=== PATIENT | female | born 1995 | race Caucasian/White ===

== ENCOUNTER 2019-08-05 04:23 | Inpatient (IN) | payer BC, SELFPAY ==
[2019-08-05] VITALS (58 sets, daily range): BP systolic 0–158; BP diastolic 0–104; PULSE 47–107; RESP 16–18; TEMP 36.5–37.1; O2SAT 100; BMI 29.0
[2019-08-05] MEDS: dextrose 5%-lactated ringers 1,000 ML 125 ML IV (05:08)
[2019-08-05] MEDS: oxytocin 30 UNIT/500 ML BAG IV (05:10)
[2019-08-05 05:18] LABS: Basophils % 0.2 %; Eosinophils # 0.1 10^3/uL (0.0-0.8); Eosinophils % 0.6 %; Hematocrit 34.2 % (37.0-47.0); Hemoglobin 10.6 g/dL (11.5-15.3); Lymphocytes # 2.6 10^3/uL (0.8-4.8); Lymphocytes % 26.8 %; Mean Corpuscular Hemoglobin 25.9 pg (28.0-34.0); Mean Corpuscular Volume 83.4 fL (81-99); Mean Platelet Volume 10.9 fL (7.4-10.4); Monocytes # 0.6 10^3/uL (0.2-0.9); Monocytes % 5.7 %; Neutrophils # 6.4 10^3/uL (1.8-7.7); Neutrophils % 66.1 %; Nucleated Red Blood Cells % 0 %; Platelet Count 250 10^3/cmm (130-400); Red Cell Distribution Width 13.2 % (12.1-15.1); White Blood Count 9.6 10^3/uL (4.0-10.0)
[2019-08-05] MEDS: fentaNYL 50 mcg/mL INJ 2mL IV ×3 (09:47→11:52)
[2019-08-05] MEDS: lactated ringers 1,000 ML 125 ML IV (12:06)
[2019-08-05] MEDS: lactated ringers 1,000 ML 999 ML IV (13:20)
--- NOTE | 2019-08-05 15:58 | PM.DELIVERY ---
 Delivery Note: Date of delivery: August 05, 2019 This 24-year-old 1 now para 1 female with an EDC of 08/04/2019 had spontaneous rupture membranes at home early this morning. She was admitted to [facility] labor and delivery with no significant contractions. Pitocin augmentation was started at low-dose and that was moved up to a moderate dose later in the morning. She began feeling contractions and having discomfort which were not controlled with intravenous medications and therefore received epidural anesthesia. Sometime shortly after epidural anesthesia the patient dilated very quickly to complete cervical dilatation. She was allowed to labor down a little bit and delivered by spontaneous vaginal delivery a healthy, viable female . Initially the head delivered at left occiput anterior position followed by the reduction of a nuchal cord x1 and delivery of the right shoulder anteriorly followed by the left shoulder posteriorly. The infant was initially suctioned at the perineum followed by suctioning right after . The was then laid on mother's abdomen where after approximately 1-1/2 minutes the umbilical cord was clamped and cut by the infant's father. The umbilical cord had 3 blood vessels. Cord blood was obtained as maternal blood type was O+. There was no episiotomy however there was a second-degree vaginal laceration that went to the left labia majora. The vaginal laceration and part of the labia laceration were approximated using 3-0 Vicryl suture without problems. Vaginal sweep found no clots and no other problems. The infant weighed 8 pounds 6 ounces after delivery and had Apgars of 8 and 9 at 1 and 5 minutes respectively. There were no complications. Estimated blood loss approximately 133 mL. Pre-Delivery Course: The patient was followed by Dr. Bonilla throughout her . There were no problems or concerns through her course. Maternal blood type was O+ with antibody screen negative. Hepatitis B, RPR and HIV were negative. Rubella was immune and group B strep was negative. Delivery: Spontaneous vaginal delivery. Post-Delivery Status: Patient is doing well and will be followed for routine postdelivery orders. A&P Assessment and plan (1) Normal spontaneous vaginal delivery: Routine postdelivery care. We will watch for problems or concerns. Status: Acute Code(s): O80 - Encounter for full-term uncomplicated delivery Coding Level of Care Code Acute Barman for Chg Fwd Diagnoses Normal spontaneous vaginal delivery O80
[2019-08-05] MEDS: docusate sodium 100 mg Capsule PO (18:36)
[2019-08-05] MEDS: lanolin oint 7 gm 1 APPLIC TOPICAL (18:36)
[2019-08-05] MEDS: benzocaine-menthol 78 gm Canister 1 SPRAY TOPICAL (18:37)
[2019-08-06 01:30] VITALS: BP 139/91; PULSE 69; RESP 16
[2019-08-06 04:37] LABS: Hematocrit 29.8 % (37.0-47.0); Hemoglobin 8.9 g/dL (11.5-15.3); Mean Corpuscular HGB Conc 29.9 g/dL (30.0-36.0); Mean Corpuscular Hemoglobin 25.3 pg (28.0-34.0); Mean Corpuscular Volume 84.7 fL (81-99); Mean Platelet Volume 11.1 fL (7.4-10.4); Platelet Count 203 10^3/cmm (130-400); Red Blood Count 3.52 10^6/uL (4.1-5.3); Red Cell Distribution Width 13.4 % (12.1-15.1); White Blood Count 12.3 10^3/uL (4.0-10.0)
[2019-08-06] MEDS: docusate sodium 100 mg Capsule PO (08:21)
[2019-08-06] MEDS: prenatal vitamin Capsule 1 CAP PO (08:21)
[2019-08-06 09:59] VITALS: BP 117/77; PULSE 71; RESP 18; TEMP 36.6
--- NOTE | 2019-08-06 13:48 | PM.OBGYDC ---
Discharge Providers SUBCONTRACT ADMINISTRATOR Date of Admission: 08/05/19 04:23 Date of Discharge: 08/06/19 Attending Provider at Admission: Franklyn Escobar MD Attending Provider at Discharge: Franklyn Escobar MD Primary Care Provider: Mason Bonilla MD Diagnoses at Discharge Discharge Diagnosis (1) Normal spontaneous vaginal delivery: Status: Acute (2) 40 weeks gestation of : Status: Acute Reason for Visit Reason for Visit: Reason For Visit: OB TRIAGE Hospital Course Hospital Course: The patient arrived at the hospital at 40 weeks estimated gestational age who arrived to the hospital with spontaneous rupture of membranes. She was placed on Pitocin. She received an epidural. She progressed to complete and had an unremarkable delivery of a healthy appearing term infant. Her course was also unremarkable. She breast-fed well. Her bleeding was within normal limits. Her pain was well controlled. Information Peripartum Data: Delivery Method: Vaginal Physical Exam Const: COMMON NORMALS: oriented x3 and alert HENMT: COMMON NORMALS: moist oral mucous membranes HEAD & SCALP: normal to inspection Chest: COMMONS NORMALS: inspection of chest normal Resp: COMMON NORMALS: clear to auscultation bilaterally AUSCULTATION: clear to auscultation bilaterally Cardio: COMMON NORMALS: regular rate and regular rhythm RATE: regular rate RHYTHM: regular rhythm GI: INSPECTION: Yes normal to inspection and Yes other (Gravid) Extremity: COMMON NORMALS: normal to inspection GENERAL: Yes edema (Trace) Neuro: COMMON NORMALS: oriented x3, moves all extremities and no sensory deficits noted SENSORIUM/ORIENTATION: Yes alert Psych: COMMON NORMALS: mental status grossly normal Skin: COMMON NORMALS: no rashes or lesions noted GENERAL SKIN EXAM: no rashes or lesions noted Discharge Data Data Completed and Pending: Labs from last 24 hours 08/06/19 04:33 WBC 12.3 H RBC 3.52 L Hgb 8.9 L Hct 29.8 L MCV 84.7 MCH 25.3 L MCHC 29.9 L RDW 13.4 Plt Count 203 MPV 11.1 H Vitals: Last Vital Signs Temp 97.9 F 08/06/19 09:59 Pulse 71 08/06/19 09:59 Resp 18 08/06/19 09:59 BP 117/77 08/06/19 09:59 Pulse Ox 100 08/05/19 13:11 Discharge Plan Discharge Patient Disposition: Home, Self-Care Condition: Stable Prescriptions: New ibuprofen 800 mg Tablet 800 mg PO TID Qty: 30 RF: 0 hydrocodone-acetaminophen 5-325 mg Tablet 1 - 2 tab PO Q6H PRN (Reason: Moderate To Severe Pain) Qty: 10 RF: 0 docusate sodium 100 mg Capsule 100 mg PO BID Qty: 60 RF: 0 Continued 1 tab PO DAILY RF: 0 Discharge Orders: Discharge Order (Routine); Ordered 08/06/19 Ordered By: Mason Bonilla Discharge Diet: Regular Discharge Activity: Limit activity as instructed Discharge Attestations SUBCONTRACT ADMINISTRATOR Time Spent in Discharge Care*: less than 30 min Coding Level of Care Code Acute Barrel Stave Inspector for g Fwd Diagnoses Normal spontaneous vaginal delivery O80 40 weeks gestation of Z3A.40
[2019-08-06 15:47] VITALS: BP 128/86; PULSE 82; RESP 16; TEMP 36.4
[2019-08-06 16:15] VITALS: BP 128/86; PULSE 82; RESP 16; TEMP 36.4
== END 2019-08-06 16:45 | disposition home or self-care (01) | DRG 807 ==
LOC: OBGYN 08-06 13:47 → OPOB 08-07 08:13
PROVIDERS: Admitting Provider Family Medicine; Family Provider Family Medicine; PCP Family Medicine; Visit Provider Family Medicine
DX: O69.81X0 Labor and delivery complicated by cord around neck, without compression, not applicable or unspecified (principal); Z37.0 Single live birth; Z3A.40 40 weeks gestation of pregnancy; O70.1 Second degree perineal laceration during delivery
CPT/HCPCS: 12345; 36415; 51702; 59409; 83986; 85025; 85027; 96374; 96375; 99211; J2795; J3010

== ENCOUNTER 2020-09-27 08:37 | Inpatient (IN) | payer BC, SELFPAY ==
[2020-09-27] VITALS (45 sets, daily range): BP systolic 79–128; BP diastolic 34–80; PULSE 49–122; RESP 17; TEMP 36.8–36.9; O2SAT 91–99; BMI 27.1
[2020-09-27] MEDS: miSOPROStol 100 mcg tablet 25 MCG SUBLINGUAL (09:13)
[2020-09-27 09:36] LABS: Basophils % 0.2 %; Eosinophils % 0.2 %; Lymphocytes # 2.1 10^3/uL (0.8-4.8); Lymphocytes % 19.1 %; Mean Corpuscular HGB Conc 32.3 g/dL (30.0-36.0); Mean Corpuscular Hemoglobin 28.2 pg (28.0-34.0); Mean Corpuscular Volume 87.3 fL (81-99); Mean Platelet Volume 11.4 fL (7.4-10.4); Monocytes # 0.5 10^3/uL (0.2-0.9); Neutrophils # 8.19 10^3/uL (1.8-7.7); Neutrophils % 75.1 %; Nucleated Red Blood Cells % 0 %; Platelet Count 202 10^3/cmm (130-400); Red Blood Count 3.55 10^6/uL (4.1-5.3); Red Cell Distribution Width 12.4 % (12.1-15.1); White Blood Count 10.9 10^3/uL (4.0-10.0)
[2020-09-27] MEDS: fentaNYL 50 mcg/mL INJ 2mL IVP ×2 (12:06→16:49)
--- NOTE | 2020-09-27 13:15 | P.ANESASSM_ITS ---
Pre-Anesthetic Assessment Pre-Anesthetic Assessment: Height/Weight: Height 1.68 m Pulse Resp BP Pulse Ox 61 17 112/79 99 09/27/20 13:08 09/27/20 12:06 09/27/20 13:01 09/27/20 13:08 Was Beta Jewel taken within 24 hours: N/A Was Clonidine taken within 24 hours: N/A Social: Social History: No alcohol and No tobacco Exam: Pre-Anes Outpt Exam: alert, oriented x 3, clear to auscultation bilaterally and regular rate & rhythm Airway: Submandibular: WNL Cervical ROM: WNL MP: 2 Dentition: Full Musc/skel: Musc/skel: Scoliosis Comments: h/o broken back , mild scoliosis Anesthetic Plan: ASA status: 2 Anesthesia: Regional (specify below) (Labor epidural) Risk of > 500 ml blood loss (7ml/kg in children): No Meds/Allergies Current Medications: Current Medications Generic Name Dose Route Start Last Admin Trade Name Freq PRN Reason Stop Dose Admin Fentanyl 25 - 100 mcg 09/27/20 11:27 09/27/20 12:06 Fentanyl 50 Mcg/ Ml Inj 2ml IVP 25 mcg Q1H PRN Administration SEVERE PAIN Misoprostol 25 mcg 09/27/20 08:45 09/27/20 09:13 Misoprostol 100 Mcg Tablet SUBLINGUAL 09/27/20 16:46 25 mcg Q4H TIA Administration Data Anesthesia CBC & Chem 7: 09/27/20 09:05 Other Labs: Laboratory Results - last 48 hr 09/27/20 09:05 WBC 10.9 H RBC 3.55 L Hgb 10.0 L Hct 31.0 L MCV 87.3 MCH 28.2 MCHC 32.3 RDW 12.4 Plt Count 202 MPV 11.4 H Neut % (Auto) 75.1 Lymph % (Auto) 19.1 [place] % (Auto) 5.0 Eos % (Auto) 0.2 Baso % (Auto) 0.2 Neut # (Auto) 8.19 H Lymph # (Auto) 2.1 [place] # (Auto) 0.5 Eos # (Auto) 0.0 Baso # (Auto) 0.0 Nucleated RBC % (auto) 0 Nucleated RBCs # 0.0 Cardiac Studies: No Data to Display
--- NOTE | 2020-09-27 13:16 | ANES.PROC ---
Anesthesia Procedures Procedure/Date: 09/27/20 Epidural: Time Out Performed: Yes Consents Signed: Procedure Consent Consent: requested by attending/covering physician, from patient, risks and benefits reviewed and patient agrees to proceed Lumbar Level: L3-L4 Epidural position: sitting Epidural procedure: sterile prep of area, 1% lidocaine to numb the area, 18 g needle, negative for paresthesia passed, test dose given, 1.5% xylocaine 1:200k epi, placed PCEA, no systemic response, sterile dressing applied and 0.2% Ropiavacaine @ mls/hr (13) Additional Comments: MARINA at 4cm, cath at 9cm
--- NOTE | 2020-09-27 18:16 | PM.DELIVERY ---
Delivery Note: Date of delivery: September 27, 2020 Pre-delivery diagnoses: 25-year-old 2 at 37 weeks and 5 days presenting to the hospital with spontaneous rupture of membranes Post-delivery diagnoses: Status post spontaneous vaginal delivery Procedure: Spontaneous vaginal delivery Op report anesthesia: Epidural Delivering Physician: Mason Bonilla Estimated blood loss (mL): 50 Pre-Delivery Course: The patient arrived to the hospital this morning around 8:00. Her membranes ruptured spontaneously at about 4:00. She was not actively paige. She was given Cytotec 25 mcg x 1 sublingual. An amniotomy was performed because a residual membrane. An epidural was placed. She progressed to complete without difficulty. She is GBS negative. Her blood type is O+. Her glucose screen was negative. The remainder of her labs were within normal limits. Delivery: DELIVERY: The patient progressed to complete without difficulty. She delivered a female with a weight of 7 pounds 12 ounces with Apgars of 8, 9. The baby was delivered from the RUSTY position. The baby's mouth and nose were suctioned at the site of the perineum. The baby was then completely delivered and placed on the mother's abdomen. The cord was then clamped and cut. There was no nuchal cord. There was no meconium. The placenta and 3 vessel cord were delivered intact shortly thereafter. The perineum and vaginal vault were carefully examined. No lacerations were noted. Both the mother and the baby were in stable condition. Post-Delivery Status: Good A&P Assessment and plan (1) 37 weeks gestation of : Status: Acute (2) Rupture of membranes with clear amniotic fluid: Status: Acute (3) Spontaneous vaginal delivery: Status: Acute Coding Level of Care Code Acute Employment Office Clerk for Chg Fwd Diagnoses 37 weeks gestation of Z3A.37 Rupture of membranes with clear amniotic fluid Spontaneous vaginal delivery O80
[2020-09-27] MEDS: benzocaine-menthol 78 gm Canister 1 SPRAY TOPICAL (18:48)
[2020-09-27] MEDS: oxytocin 30 UNIT/500 ML BAG 600 UNIT IV (18:50)
[2020-09-27] MEDS: ibuprofen 800 mg tablet PO (20:03)
[2020-09-28] VITALS: BP 111/56; PULSE 60; RESP 16; TEMP 37; O2SAT 97
[2020-09-28 01:55] VITALS: BP 109/60; PULSE 50
[2020-09-28] MEDS: acetaminophen 325 mg Tablet 650 MG PO ×2 (02:03→07:21)
[2020-09-28 04:22] VITALS: BP 110/66; PULSE 45
[2020-09-28] MEDS: HYDROcodone-acetaminophen 5-325 mg Tablet PO (04:24)
--- NOTE | 2020-09-28 05:47 | P.DS_ITS ---
Discharge Providers AUTOMOTIVE BRAKE SPECIALIST Date of Admission: 09/27/20 08:37 Date of Discharge: 09/28/20 Attending Provider at Admission: Mason Bonilla MD Attending Provider at Discharge: Mason Bonilla MD Primary Care Provider: Mason Bonilla MD Diagnoses at Discharge Discharge Diagnosis (1) 37 weeks gestation of : Status: Acute (2) Rupture of membranes with clear amniotic fluid: Status: Acute (3) Spontaneous vaginal delivery: Status: Acute Reason for Visit Reason for Visit: [facility] Hospital Course Hospital Course The patient presented to the hospital after having spontaneous rupture of membranes. Cytotec 25 mcg x 1 was used to soften her cervix and induce contractions. An epidural was placed. The patient progressed to complete and had an unremarkable vaginal delivery. Her course was also unremarkable. Her bleeding was minimal. She breast-fed well. Her pain was within normal limits. Information Peripartum Data: Infant Delivery Method: Vaginal Physical Exam Narrative: EXAM NARRATIVE: The patient is alert. She appears comfortable. Her heart has a regular rate and rhythm with no murmurs appreciated. Lungs are clear to auscultation bilaterally. Her fundus is firm and below the umbilicus. Urinary Catheter Management^: Bojorquez: Cath Placed During This Visit: yes Urinary Catheter Date of Insertion: 09/27/20 Urinary Catheter Time of Insertion: 13:45 Discharge Data 2 Data Completed and Pending: Pending at discharge Category Date Time Status Hemagram Timed Lab 09/28/20 06:09 Uncollected Labs from last 24 hours 09/27/20 09:05 WBC 10.9 H RBC 3.55 L Hgb 10.0 L Hct 31.0 L MCV 87.3 MCH 28.2 MCHC 32.3 RDW 12.4 Plt Count 202 MPV 11.4 H Neut % (Auto) 75.1 Lymph % (Auto) 19.1 [place] % (Auto) 5.0 Eos % (Auto) 0.2 Baso % (Auto) 0.2 Neut # (Auto) 8.19 H Lymph # (Auto) 2.1 [place] # (Auto) 0.5 Eos # (Auto) 0.0 Baso # (Auto) 0.0 Nucleated RBC % (a uto) 0 Nucleated RBCs # 0.0 Vitals: Last Vital Signs Temp 98.6 F 09/28/20 00:00 Pulse 45 L 09/28/20 04:22 Resp 16 09/28/20 00:00 BP 110/66 09/28/20 04:22 Pulse Ox 97 09/28/20 00:00 Discharge Plan Discharge Patient Disposition: Home Condition: Stable Prescriptions: New ibuprofen 800 mg Tablet 800 mg PO TID Qty: 45 RF: 0 Continued 1 tab PO DAILY RF: 0 docusate sodium 100 mg Capsule 100 mg PO BID Qty: 60 RF: 0 Discontinued ibuprofen 800 mg Tablet 800 mg PO TID Qty: 30 RF: 0 hydrocodone-acetaminophen 5-325 mg Tablet 1 - 2 tab PO Q6H PRN (Reason: Moderate To Severe Pain) Qty: 10 RF: 0 Discharge Orders: Discharge Order (Routine); Ordered 09/28/20 Ordered By: Mason Bonilla Referrals: Mason Bonilla MD [Primary Care Provider] - 4-7 days (Schedule at the same time the baby has her appointment to discuss control. Also set up appointment for 6-week follow-up.) Discharge Diet: Usual diet Discharge Activity: Limit activity as instructed Patient Instructions: Opioid Safety Discharge Attestations AUTOMOTIVE BRAKE SPECIALIST Time Spent in Discharge Care*: less than 30 min Coding Level of Care Code Acute Animal Rides Manager for Chg Fwd Diagnoses 37 weeks gestation of Z3A.37 Rupture of membranes with clear amniotic fluid Spontaneous vaginal delivery O80
[2020-09-28 06:30] LABS: Hemoglobin 10.2 g/dL (11.5-15.3); Mean Corpuscular HGB Conc 31.9 g/dL (30.0-36.0); Mean Corpuscular Hemoglobin 27.8 pg (28.0-34.0); Mean Corpuscular Volume 87.2 fL (81-99); Mean Platelet Volume 11.2 fL (7.4-10.4); Platelet Count 184 10^3/cmm (130-400); Red Blood Count 3.67 10^6/uL (4.1-5.3); Red Cell Distribution Width 12.6 % (12.1-15.1); White Blood Count 10.6 10^3/uL (4.0-10.0)
[2020-09-28] MEDS: lanolin oint 7 gm 1 APPLIC TOPICAL (07:21)
[2020-09-28] MEDS: docusate sodium 100 mg Capsule PO (09:14)
[2020-09-28] MEDS: prenatal vitamin Capsule 1 CAP PO (09:14)
[2020-09-28] MEDS: ibuprofen 800 mg tablet PO ×2 (09:14→15:07)
[2020-09-28 09:15] VITALS: BP 105/58; PULSE 64
[2020-09-28 18:29] VITALS: BP 102/68; PULSE 70; RESP 16; TEMP 36.7
== END 2020-09-28 18:50 | disposition home or self-care (01) | DRG 807 ==
LOC: OPOB 11:14 → OBGYN 11:14
PROVIDERS: Admitting Provider Family Medicine; PCP Family Medicine; Visit Provider Family Medicine
DX: O99.344 Other mental disorders complicating childbirth (principal); Z37.0 Single live birth; F99 Mental disorder, not otherwise specified; Z3A.37 37 weeks gestation of pregnancy; O75.89 Other specified complications of labor and delivery; Z85.528 Personal history of other malignant neoplasm of kidney; Z85.828 Personal history of other malignant neoplasm of skin; Z92.21 Personal history of antineoplastic chemotherapy; Z90.5 Acquired absence of kidney; J30.2 Other seasonal allergic rhinitis
CPT/HCPCS: 12345; 36415; 51702; 59025; 59409; 83986; 85025; 85027; 99211; J2795; J3010

== ENCOUNTER 2021-03-24 13:17 | Emergency (ER) | payer OTHER, SELFPAY ==
[2021-03-24 13:26] VITALS: BP 134/89; PULSE 64; RESP 16; TEMP 36.8; O2SAT 98
--- NOTE | 2021-03-24 13:47 | XR_ITS ---
WS: [id number] RIGHT ELBOW: 3 VIEW(S) TECHNIQUE: AP, oblique and lateral. HISTORY: fall/injury COMPARISON: None available. Acute nondisplaced radial head fracture. There is an additional incomplete lucency in the lateral epi condyle which I believe is probably a nutrient foramen. This can be reevaluated on follow-up imaging. Moderate size joint effusion. No soft tissue abnormality. XR/XR elbow RT min 3V* [id number] IMPRESSION: Acute nondisplaced radial head fracture. Moderate joint effusion.
--- NOTE | 2021-03-24 13:48 | W.ED.FALL ---
HPI - Fall General: Chief Complaint: Extremity Injury, Upper Stated Complaint: Right Arm Pain from Fall Time Seen by Provider: 03/24/21 13:42 Source: patient Mode of arrival: ambulatory Limitations: no limitations History of Present Illness: HPI Narrative: Patient is a 26-year-old female who presents to ED today for evaluation following a fall that occurred at work. Patient works in the imaging department here at [employer] and states she tripped over an ultrasound machine cord. She states she landed on her outstretched arms. She is complaining of pain near her right elbow. She has no other complaints or injuries at this time. Concerned that she may have a biceps tendon injury. complaint: fall Onset (ago): minute(s) Fall from: standing Fall witnessed: yes, by bystander Place fall occurred: work Loss of consciousness: None Prolonged down time: no Symptoms prior to fall: none Context: tripped/slipped Location of injury - extremities: Right: elbow Associated symptoms-after fall: Reports no associated symptoms; Denies abdominal pain, chest pain, difficulty walking, headache(s), lightheadedness or neck pain Review of Systems Eyes: Denies: change in vision Card: Denies: chest pain, irregular heart rhythm, lightheadedness, syncope or pre-syncope Resp: Denies: dyspnea GI: Denies: abdominal pain, nausea or vomiting Musc: Reports: joint pain (R elbow); Denies: neck pain, back pain, extremity pain, extremity swelling, joint swelling, joint redness or joint warmth Skin/Breast: Reports: other (no abrasions/lacerations noted) Neuro: Denies: headache(s), numbness in extremities, weakness in extremities, sensory changes or difficulty walking Physical Exam Const: COMMON NORMALS: no acute distress, average body habitus, patient oriented x3, no limitations, healthy appearing, alert and well nourished GENERAL APPEARANCE: cooperative ORIENTATION/CONSCIOUSNESS: Yes awake, Yes oriented to person, Yes oriented to place and Yes oriented to time Extremity: GENERAL: Yes normal exam except as noted RIGHT UPPER EXTREMITY: Yes elbow joint (TTP medial elbow; pain with full extension ) Right elbow: Yes inspection, Yes neurovascular exam (normal), Yes other (no carol deformity ) and Yes special tests (negative Speed's/Yergason's testing for biceps tendon injury) Neuro: ROBERT COMA SCALE: document GCS findings Robert coma scale eye opening: Spontaneous [place] coma scale verbal response: Orientated Robert coma scale motor response: Obey commands Robert coma scale total score: 15 COMMON NORMALS: patient oriented x3, moves all extremities, no focal motor deficits, no sensory deficits noted and gait normal SENSORIUM/ORIENTATION: Yes alert, Yes oriented to person, Yes oriented to place and Yes oriented to time Skin: COMMON NORMALS: no rashes or lesions noted GENERAL SKIN EXAM: no rashes or lesions noted TRAUMA: no lacerations or abrasions Course Vital Signs: Vital signs: Vital Signs Temperature 98.3 F 03/24/21 13:26 Pulse Rate 64 03/24/21 13:26 Respiratory Rate 16 03/24/21 13:26 Blood Pressure 134/89 03/24/21 13:26 Pulse Oximetry 98 03/24/21 13:26 MDM - Fall MDM Narrative: Medical decision making narrative: Patient with a nondisplaced radial head fracture and questionable lateral epicondyle fracture although this is most likely a nutrient foramen. Patient will be placed in a posterior elbow splint and follow-up with orthopedics. She will follow up with Worker's Comp as instructed. She will go to occupational health for drug/alcohol testing following discharge. Imaging Data^: XR R elbow: Radiologist's impression: [address] [id number] ReportSigned Patient: Quique Badillo #: [id number]: 1995Acct#:[id number]/Sex: / FADM Date: 03/24/21Loc: [facility]/Bed:Attending Dr: Ordering Provider/Ordering MD: Alix Alarcon Date of Service: 03/24/21 Procedure(s): XR elbow RT min 3V* [id number] Accession Number(s): [id number] Report Number: [id number] WS: [id number] RIGHT ELBOW: 3 VIEW(S) TECHNIQUE: AP, oblique and lateral. HISTORY: fall/injury COMPARISON: None available. Acute nondisplaced radial head fracture. There is an additional incomplete lucency in the lateral epicondyle which I believe is probably a nutrient foramen. This can be reevaluated on follow-up imaging. Moderate size joint effusion. No soft tissue abnormality. XR/XR elbow RT min 3V* [id number] IMPRESSION: Acute nondisplaced radial head fracture. Moderate joint effusion. Dictated By:Louise Cantrell DOSigned By:Louise Cantrell DOSigned Date/Time:03/24/211404DD/ 02 Discharge Plan Discharge Patient Disposition: Home Clinical Impression: Closed fracture of head of right radius Qualifiers: Encounter type: initial encounter Fracture alignment: nondisplaced Qualified Code(s): S52.124A - Nondisplaced fracture of head of right radius, initial encounter for closed fracture Condition: Stable Prescriptions: No Action ibuprofen 800 mg Tablet 800 mg PO TID Qty: 45 RF: 0 1 tab PO DAILY RF: 0 docusate sodium 100 mg Capsule 100 mg PO BID Qty: 60 RF: 0 Discharge Orders: Discharge ED (Routine); Ordered 03/24/21 Ordered By: Alix Alarcon Referrals: Mason Bonilla MD [Primary Care Provider] - Patient Instructions: Elbow Fracture (ED) Activity Restrictions/Additional Instructions: Please send over to Occupational Health in the [facility] for alcohol/drug testing. As we discussed case management is working on your orthopedic referral. Follow up tomorrow for Worker's Compensation. Coding Level of Care Code ED Hydrate Control Tender for Chg Fwd Exam Expanded Problem Focused
--- NOTE | 2021-03-24 15:10 | DCPLANNER ---
marketing services manager was asked to schedule a follow up appointment for patient with ortho. marketing services manager called the ortho clinic, spoke with Maria Luisa, gave clinic patients information. marketing services manager was told that patients information would be printed and reviewed. Clinic will call patient with appointment information.
--- NOTE | 2021-04-04 13:17 | DCPLANNER ---
Patient had a follow up appointment scheduled for 03.26.[address] Shaikh at [facility] - patient did attend appointment.
== END 2021-03-24 15:39 | disposition home or self-care (01) ==
PROVIDERS: Emergency Provider Physician Assistant; PCP Family Medicine
DX: S52.124A Nondisplaced fracture of head of right radius, initial encounter for closed fracture (principal); W18.09XA Striking against other object with subsequent fall, initial encounter; Y92.238 Other place in hospital as the place of occurrence of the external cause; Y99.0 Civilian activity done for income or pay
CPT/HCPCS: 29105; 73080; 99283

== ENCOUNTER 2021-03-26 14:18 | Outpatient (CLI) | payer OTHER, SELFPAY | END 2021-03-26 14:19 | disposition home or self-care (01) | LOC: SPT 14:19 | PROVIDERS: PCP Family Medicine; Visit Provider Specialist | DX: Z46.89 Encounter for fitting and adjustment of other specified devices (principal); S52.124D Nondisplaced fracture of head of right radius, subsequent encounter for closed fracture with routine healing; X58.XXXD Exposure to other specified factors, subsequent encounter | CPT/HCPCS: 97760; L3761 ==

== ENCOUNTER → 2021-04-14 10:15 | Outpatient (BNVA) | payer OTHER, SELFPAY | PROVIDERS: PCP Family Medicine; Visit Provider Specialist | DX: S42.401A Unspecified fracture of lower end of right humerus, initial encounter for closed fracture (principal); W19.XXXA Unspecified fall, initial encounter | CPT/HCPCS: 73080 ==